=== PATIENT | male | born 1985 | race Caucasian/White ===

== ENCOUNTER 2018-04-01 10:03 | Emergency (ER) | payer OTHER ==
[~2018-04-01] VITALS: Ht 180.3 cm; Wt 104.3 kg
== END 2018-04-01 15:07 | disposition home or self-care (01) ==
LOC: ER 10:03
DX: R51 Headache (principal)

== ENCOUNTER 2020-11-22 14:39 | Emergency (ER) | payer OTHER ==
[~2020-11-22] VITALS: Ht 180.3 cm; Wt 104.3 kg
[2020-11-22] MEDS ORDERED: BUTALBIT-ACETA1 EACH PO (17:55)
[2020-11-22] MEDS ORDERED: KETO10TA2 PO (17:55)
== END 2020-11-22 18:06 | disposition home or self-care (01) ==
LOC: ER 14:39
DX: G43.109 Migraine with aura, not intractable, without status migrainosus (principal)

== ENCOUNTER 2021-12-06 20:25 | Emergency (ER) | payer OTHER ==
[~2021-12-06] VITALS: Ht 180.3 cm; Wt 103.0 kg
[~2021-12-06 20:25] MED LIST: BUTALBIT-ACETA1 EACH PO; KETO10TA2 PO
[2021-12-06] MEDS ORDERED: PROAIR HFA8.5 GM IH (20:55)
[2021-12-06] MEDS ORDERED: MONTELUKAST SOD10 MG PO (20:55)
== END 2021-12-06 22:39 | disposition home or self-care (01) ==
LOC: ER 20:25
DX: S09.90XA Unspecified injury of head, initial encounter (principal); W22.8XXA Striking against or struck by other objects, initial encounter; Y93.39 Activity, other involving climbing, rappelling and jumping off; Y92.019 Unspecified place in single-family (private) house as the place of occurrence of the external cause

== ENCOUNTER → 2022-10-07 | Outpatient (CLI) | payer OTHER ==
[~2022-10-07] MED LIST changes: +MONTELUKAST SOD10 MG PO; +PROAIR HFA8.5 GM IH
== END | disposition home or self-care (01) ==
LOC: LAB 04:29
PROVIDERS: ATTEND Obstetrics & Gynecology
DX: Z20.828 Contact with and (suspected) exposure to other viral communicable diseases (principal); Z20.818 Contact with and (suspected) exposure to other bacterial communicable diseases